=== PATIENT | male | born 1955 | race African-American/Black ===

== ENCOUNTER 2021-03-05 18:40 | Inpatient (IN) | payer MEDICARE, OTHER ==
[~2021-03-05] VITALS: Ht 193 cm; Wt 121.6 kg
[~2021-03-05 18:40] MED LIST: AMLODIPINE BESY10 MG PO; CARVEDILOL25 MG PO; CHLORTHALIDONE25 MG PO; CLEOCIN HCL300 MG PO; LEVAQUIN750 MG PO; LOSARTAN POTAS100 MG PO; MAGIC MOUTHWASH PO; MULTI-VITAMIN1 EACH PO; NORCO 5-325 TA1 EACH PO; NORCO 7.5-3251 EACH PO; OMNICEF 300 MG300 MG PO; ONDANSETRON ODT4 MG SL; PERCOCET 5-3251 EACH PO; PREDNISONE20 MG PO; PROTONIX40 MG PO; SERTRALINE HCL100 MG PO; SYMBICORT 16010.2 GM INH; TRAZODONE HCL100 MG PO; VIBRAMYCIN100 MG PO; VITAMIN D32000 UNI1 PO; ZITHROMAX250 MG PO
[2021-03-05 19:23] LABS: HEMOGLOBIN 12.6 gm/dl (14.0-17.5); RED BLOOD COUNT 4.68 M/UL (4.20-5.50); WHITE BLOOD COUNT 5.5 K/UL (4.5-11.0)
--- NOTE | 2021-03-06 01:58 | NUR ---
PT UNSURE OF HOME MEDS. WILL CALL PHARMACY IN AM
[2021-03-06 04:32] LABS: HEMOGLOBIN 12.8 gm/dl (14.0-17.5); RED BLOOD COUNT 4.77 M/UL (4.20-5.50)
[2021-03-06 04:45] LABS: WHITE BLOOD COUNT 3.3 K/UL (4.5-11.0)
[2021-03-06] MEDS ORDERED: PROVENTIL HFA6.7 GM INH (07:29)
[2021-03-06] MEDS ORDERED: MINIPRES CAP 2 M2 MG PO (07:33)
[2021-03-06] MEDS ORDERED: ASPIRIN EC81 MG PO (08:41)
[2021-03-06] MEDS ORDERED: ABILIFY5 MG PO (08:41)
[2021-03-06] MEDS ORDERED: LIPITOR20 MG PO (08:42)
[2021-03-06] MEDS ORDERED: SENNA PLUS TAB1 EACH PO (08:43)
[2021-03-06] MEDS ORDERED: NEXIUM40 MG PO (08:44)
[2021-03-06] MEDS ORDERED: FERROUS SULFAT325 M2 PO (08:45)
[2021-03-06] MEDS ORDERED: PROCARDIA XL60 MG PO (08:46)
[2021-03-06] MEDS ORDERED: TRAZODONE HCL150 MG PO (08:47)
[2021-03-06] MEDS ORDERED: SPIRIVA RESPIMAT4 GM INH (08:49)
[2021-03-06] MEDS ORDERED: ATIVAN0.5 MG PO (09:03)
[2021-03-06] MEDS ORDERED: LIORESAL TAB 1010 MG PO (09:04)
[2021-03-06] MEDS ORDERED: VIAGRA100 MG PO (09:05)
--- NOTE | 2021-03-06 18:29 | NUR ---
AT 1600 PT CALLED OUT AND SAID IS HAVING A SUDDEN ONSET OF C/P , HIS BP WAS 200/120 86 HR, I CALLED DR KOHLER AND ORDERED A STAT EKG AND GIVE HIM X 1 NITRO 0.4 SL, PT DID STATE IT HELPED HIS C/P , BP 196/126 NOTED AND THEN IVP APRESOLINE ORDERED AND GIVEN PER ANGELINA VIGIL WAS ALSO HERE HELPING LOOK AFTER PT , BP 158/97, ALSO WE STARTED IV CARDENE PER ORDERED ON PROTOCAL, 143/93 , TURNED DRIP OFF AT 1715, PER DR WRIGHT ORDER, PT STATES FEELS BETTER, TROPOIN ALSO WAS DONE WHICH WAS .03 NOTED 1900 PT STATES FEELS BETTER NO C/O PAIN NOTED, IV FLDS INFUSIONING ORDERED
[2021-03-07 04:18] LABS: HEMOGLOBIN 13.4 gm/dl (14.0-17.5); RED BLOOD COUNT 4.83 M/UL (4.20-5.50)
[2021-03-07 04:37] LABS: BUN/CREATININE RATIO 16 (0-10)
[2021-03-08 06:34] LABS: HEMOGLOBIN 12.7 gm/dl (14.0-17.5); RED BLOOD COUNT 4.62 M/UL (4.20-5.50); WHITE BLOOD COUNT 7.7 K/UL (4.5-11.0)
[2021-03-08 07:00] LABS: BUN/CREATININE RATIO 22 (0-10)
[2021-03-09 04:05] LABS: HEMOGLOBIN 12.2 gm/dl (14.0-17.5); RED BLOOD COUNT 4.46 M/UL (4.20-5.50); WHITE BLOOD COUNT 7.2 K/UL (4.5-11.0)
[2021-03-09 04:25] LABS: BUN/CREATININE RATIO 20 (0-10)
[2021-03-10 03:46] LABS: HEMOGLOBIN 11.7 gm/dl (14.0-17.5); RED BLOOD COUNT 4.23 M/UL (4.20-5.50); WHITE BLOOD COUNT 7.7 K/UL (4.5-11.0)
[2021-03-10 04:35] LABS: BUN/CREATININE RATIO 19 (0-10)
[2021-03-10] MEDS ORDERED: HYDRALAZINE HCL50 MG PO (12:18)
[2021-03-10] MEDS ORDERED: DOXYCYCLINE HY100 MG PO (12:18)
[2021-03-10] MEDS ORDERED: DEXAMETHASONE1 MG PO (12:18)
--- NOTE | 2021-03-10 13:52 | NUR ---
1300-OXYGEN SATURATION 84% ON RA
[2021-03-11 10:08] LABS: HBSAG SCREEN Negative (Negative); HEP A AB, IGM Negative (Negative); HEP B CORE AB, IGM Negative (Negative); HEP C VIRUS AB >11.0 (0.0-0.9)
[2021-04-04] MEDS ORDERED: HYDROCODON-ACE1 EAC2 PO (09:03)
== END 2021-03-10 16:25 | disposition home or self-care (01) | DRG 177 ==
LOC: ER1 18:40 → MED SURG 4 22:28 → CDU 22:28 → MED SURG 4 03-06 00:02
PROVIDERS: Family Medicine; Internal Medicine; ADMIT Internal Medicine
PROC: 3E0333Z Introduction of Anti-inflammatory into Peripheral Vein, Percutaneous Approach (ICD-10-PCS; 2021-03-05)
PROC: XW033E5 Introduction of Remdesivir Anti-infective into Peripheral Vein, Percutaneous Approach, New Technology Group 5 (ICD-10-PCS; principal; 2021-03-06)
PROC: 8E0ZXY6 Isolation (ICD-10-PCS; 2021-03-06)
DX: U07.1 COVID-19 (principal); J12.82 Pneumonia due to coronavirus disease 2019; J96.01 Acute respiratory failure with hypoxia; N17.9 Acute kidney failure, unspecified; C34.90 Malignant neoplasm of unspecified part of unspecified bronchus or lung; J44.0 Chronic obstructive pulmonary disease with (acute) lower respiratory infection; A09 Infectious gastroenteritis and colitis, unspecified; D69.6 Thrombocytopenia, unspecified; E86.0 Dehydration; F17.210 Nicotine dependence, cigarettes, uncomplicated; I16.0 Hypertensive urgency; R79.89 Other specified abnormal findings of blood chemistry; I10 Essential (primary) hypertension; Z99.81 Dependence on supplemental oxygen; Z83.3 Family history of diabetes mellitus; Z79.82 Long term (current) use of aspirin
CPT/HCPCS: 0240U; 36415; 36600; 71045; 80048; 80053; 80074; 81001; 82550; 82553; 82803; 82962; 83605; 83615; 84132; 84484; 85025; 85610; 86140; 87040; 87086; 93005; 94640; 94664; 94760; 96374; 96375; 99285; G0378; J0360; J0456; J0696; J1100; J1650; J2543; J2930; J3480; J7030; J7070

== ENCOUNTER 2021-04-03 11:06 | Emergency (ER) | payer MEDICARE, OTHER ==
[~2021-04-03 11:06] MED LIST changes: +ABILIFY5 MG PO; +ASPIRIN EC81 MG PO; +ATIVAN0.5 MG PO; +DEXAMETHASONE1 MG PO; +DOXYCYCLINE HY100 MG PO; +FERROUS SULFAT325 M2 PO; +HYDRALAZINE HCL50 MG PO; +LIORESAL TAB 1010 MG PO; +LIPITOR20 MG PO; +MINIPRES CAP 2 M2 MG PO; +NEXIUM40 MG PO; +PROCARDIA XL60 MG PO; +PROVENTIL HFA6.7 GM INH; +SENNA PLUS TAB1 EACH PO; +SPIRIVA RESPIMAT4 GM INH; +TRAZODONE HCL150 MG PO; +VIAGRA100 MG PO
[2021-04-03 11:42] LABS: HEMOGLOBIN 11.7 gm/dl (14.0-17.5); RED BLOOD COUNT 4.17 M/UL (4.20-5.50); WHITE BLOOD COUNT 5.5 K/UL (4.5-11.0)
[2021-04-03 12:27] LABS: BUN/CREATININE RATIO 5 (0-10)
[2021-04-03] MEDS ORDERED: PREDNISONE 20 M20 MG PO (15:50)
[2021-04-03] MEDS ORDERED: AZITHROMYCIN500 MG PO (15:50)
[2021-04-03] MEDS ORDERED: CEFDINIR300 MG PO (15:50)
[2021-04-04] MEDS ORDERED: HYDROCODON-ACE1 EAC2 PO (09:03)
[2021-04-04] MEDS ORDERED: LAMISIL TAB 25250 MG PO (14:57)
== END 2021-04-03 16:27 | disposition home or self-care (01) ==
LOC: ER1 11:06
PROVIDERS: Physician Assistant
DX: J44.1 Chronic obstructive pulmonary disease with (acute) exacerbation (principal); J44.0 Chronic obstructive pulmonary disease with (acute) lower respiratory infection; J18.9 Pneumonia, unspecified organism; I10 Essential (primary) hypertension; F17.200 Nicotine dependence, unspecified, uncomplicated; I25.2 Old myocardial infarction; Z20.822 Contact with and (suspected) exposure to COVID-19
CPT/HCPCS: 0240U; 36600; 71045; 80053; 82550; 82553; 82803; 83874; 83880; 84484; 85025; 93005; 94640; 94664; 96374; 99285; J2930

== ENCOUNTER 2021-04-04 10:42 | Observation (INO) | payer MEDICARE, OTHER ==
[~2021-04-04] VITALS: Ht 193 cm; Wt 117.9 kg
[~2021-04-04 10:42] MED LIST changes: +AZITHROMYCIN500 MG PO; +CEFDINIR300 MG PO; +HYDROCODON-ACE1 EAC2 PO; +PREDNISONE 20 M20 MG PO
[2021-04-04 12:04] LABS: HEMOGLOBIN 12.1 gm/dl (14.0-17.5); RED BLOOD COUNT 4.28 M/UL (4.20-5.50); WHITE BLOOD COUNT 11.6 K/UL (4.5-11.0)
[2021-04-04 12:23] LABS: BUN/CREATININE RATIO 10 (0-10)
[2021-04-04] MEDS ORDERED: LAMISIL TAB 25250 MG PO (14:57)
== END 2021-04-04 19:18 | disposition home or self-care (01) ==
LOC: ER1 10:42 → CDU 13:56 → MED SURG 4 16:07
PROVIDERS: Emergency Medicine; ADMIT Internal Medicine
DX: R07.89 Other chest pain (principal); I10 Essential (primary) hypertension; E78.5 Hyperlipidemia, unspecified; E87.6 Hypokalemia; J44.9 Chronic obstructive pulmonary disease, unspecified; F17.210 Nicotine dependence, cigarettes, uncomplicated; Z20.822 Contact with and (suspected) exposure to COVID-19; Z86.16 Personal history of COVID-19; Z87.01 Personal history of pneumonia (recurrent); Z99.81 Dependence on supplemental oxygen; Z85.118 Personal history of other malignant neoplasm of bronchus and lung; Z92.21 Personal history of antineoplastic chemotherapy; Z79.82 Long term (current) use of aspirin; Z79.899 Other long term (current) drug therapy
CPT/HCPCS: 36415; 71045; 80053; 82550; 82553; 83874; 84484; 85025; 99285; G0378; U0002

== ENCOUNTER 2021-06-01 17:36 | Emergency (ER) | payer MEDICARE, OTHER ==
[~2021-06-01 17:36] MED LIST changes: +LAMISIL TAB 25250 MG PO
== END 2021-06-01 23:30 | disposition left against medical advice (07) ==
LOC: ER1 17:36
DX: Z53.21 Procedure and treatment not carried out due to patient leaving prior to being seen by health care provider (principal)
CPT/HCPCS: 0240U; 93005

== ENCOUNTER 2021-12-04 16:49 | Emergency (ER) | payer MEDICARE, OTHER ==
[2021-12-04 17:14] LABS: HEMOGLOBIN 13.6 gm/dl (14.0-17.5); RED BLOOD COUNT 4.95 M/UL (4.20-5.50); WHITE BLOOD COUNT 8.1 K/UL (4.5-11.0)
[2021-12-04 17:41] LABS: BUN/CREATININE RATIO 10 (0-10)
[2021-12-04] MEDS ORDERED: HYDROCODON-ACE1 EAC4 PO (20:41)
[2021-12-04] MEDS ORDERED: PROTONIX20 MG PO (20:41)
[2021-12-04] MEDS ORDERED: CARAFATE 1 GM TA1 GM PO (20:41)
== END 2021-12-04 20:49 | disposition left against medical advice (07) ==
LOC: ER1 16:49
PROVIDERS: Emergency Medicine
DX: K29.70 Gastritis, unspecified, without bleeding (principal); Z20.822 Contact with and (suspected) exposure to COVID-19; I25.2 Old myocardial infarction; I10 Essential (primary) hypertension; F17.210 Nicotine dependence, cigarettes, uncomplicated
CPT/HCPCS: 71045; 80048; 80076; 82550; 82553; 83690; 84484; 85025; 93005; 96374; 96375; 99285; G0480; J2270; J2405; Q9967; U0002

== ENCOUNTER 2022-02-28 09:41 | Emergency (ER) | payer OTHER, MEDICARE ==
[~2022-02-28 09:41] MED LIST changes: +CARAFATE 1 GM TA1 GM PO; +HYDROCODON-ACE1 EAC4 PO; +PROTONIX20 MG PO
[2022-02-28 10:17] LABS: HEMOGLOBIN 13.9 gm/dl (14.0-17.5); RED BLOOD COUNT 4.99 M/UL (4.20-5.50); WHITE BLOOD COUNT 9.4 K/UL (4.5-11.0)
[2022-02-28] MEDS ORDERED: PREDNISONE 50 M50 MG PO (12:31)
[2022-02-28] MEDS ORDERED: VIBRAMYCIN100 MG PO (12:31)
== END 2022-02-28 12:30 | disposition home or self-care (01) ==
LOC: ER1 09:41
PROVIDERS: Emergency Medicine
DX: J44.1 Chronic obstructive pulmonary disease with (acute) exacerbation (principal)
CPT/HCPCS: 71045; 80048; 84484; 85025; 93005; 99285

== ENCOUNTER 2022-05-05 12:41 | Observation (INO) | payer OTHER, MEDICARE ==
[~2022-05-05] VITALS: Ht 193 cm; Wt 113.4 kg
[~2022-05-05 12:41] MED LIST changes: +BREZTRI AEROS10.7 GM INH; +BUSPIRONE HCL5 MG PO; +FERROUS SULFAT324 MG PO; -FERROUS SULFAT325 M2 PO; +FLOMAX 0.4 MG0.4 MG PO; +ISOSORBIDE MONO30 MG PO; +MAGNESIUM OXID420 MG PO; +MULTIVITAMIN1 EACH PO; +NITROGLYCERIN0.4 MG SL; +OMEPRAZOLE20 MG PO; +POTASSIUM CHLO20 ME1 PO; +PREDNISONE 50 M50 MG PO; +SIMETHICONE80 MG PO; +SUCRALFATE1 GM PO; +VITAMIN C250 MG PO; -VITAMIN D32000 UNI1 PO; +VITAMIN D325 MC6 PO
[2022-05-05 13:08] LABS: HEMOGLOBIN 13.5 gm/dl (14.0-17.5); RED BLOOD COUNT 4.94 M/UL (4.20-5.50); WHITE BLOOD COUNT 7.4 K/UL (4.5-11.0)
[2022-05-05 13:20] LABS: BUN/CREATININE RATIO 9 (0-10)
[2022-05-05 18:16] LABS: BUN/CREATININE RATIO 12 (0-10)
[2022-05-06 00:36] LABS: HEMOGLOBIN 11.6 gm/dl (14.0-17.5); RED BLOOD COUNT 4.25 M/UL (4.20-5.50); WHITE BLOOD COUNT 6.2 K/UL (4.5-11.0)
--- NOTE | 2022-05-06 01:41 | NUR ---
APPROX 1850 DR. LAMBERT ORDERS IF CARDIAC ENZYMES ARE HIGH TO CALL CARDIO AND MOVE TO PCU. 191 DR. BANG CALLS AND STATES OK FOR PT TO STAY ON MED SURGE AT THIS TIME DONT THINK ENZYMES WILL BE ELEVATED BUT IF THEY DO COME BACK INCREASES FROM E[facility]ER TODAY OK TO MOVE TO PCU. 1916 CALLED LAB CHECKING ON 1800 CARDIAC ENZYMES THEY ARE ON WAY UP NOW TO DO THIS LAB.
--- NOTE | 2022-05-07 03:01 | NUR ---
APPROX 2030 RADIAL BAND REMOVED, AREA CLEANED, AND LARGE BANDAID PLACED, NO SIGNS OF BLEEDING, NO SIGNS OF DISTRESS. PT WAS CHECKED AT THE FOLLOWING TIMES AND HAD NO BLEEDING AND NO SIGNS OF DISTRESS. 2029,2044,2099,[id number],5,[id number],0040. WILL CONTINUE TO MONTIOR PATIENT.
== END 2022-05-07 11:14 | disposition home or self-care (01) ==
LOC: ER1 12:41 → MED SURG 4 14:09 → CDU 14:09 → MED SURG 4 18:39
PROVIDERS: Emergency Medicine; Physician Assistant Medical; ADMIT Internal Medicine Infectious Disease
DX: R07.89 Other chest pain (principal); I10 Essential (primary) hypertension; E78.5 Hyperlipidemia, unspecified; K21.9 Gastro-esophageal reflux disease without esophagitis; J44.9 Chronic obstructive pulmonary disease, unspecified; F17.210 Nicotine dependence, cigarettes, uncomplicated; Z72.89 Other problems related to lifestyle; Z91.018 Allergy to other foods; Z79.82 Long term (current) use of aspirin; Z79.899 Other long term (current) drug therapy
CPT/HCPCS: 71045; 80048; 80053; 82550; 82553; 83735; 84484; 85025; 85027; 85610; 85730; 93005; 94760; 96374; 99152; 99285; G0378; J1644; J2250; J2270; J3010; Q9967

== ENCOUNTER 2022-05-19 03:16 | Emergency (ER) | payer OTHER, MEDICARE ==
[2022-05-19 04:06] LABS: HEMOGLOBIN 13.6 gm/dl (14.0-17.5); RED BLOOD COUNT 4.9 M/UL (4.20-5.50); WHITE BLOOD COUNT 12.5 K/UL (4.5-11.0)
[2022-05-19 04:36] LABS: BUN/CREATININE RATIO 12 (0-10)
[2022-05-19] MEDS ORDERED: HYDROCODON-ACE1 EAC4 PO (08:50)
== END 2022-05-19 11:17 | disposition home or self-care (01) ==
LOC: ER1 03:16
PROVIDERS: Student in an Organized Health Care Education/Training Program
DX: S82.62XA Displaced fracture of lateral malleolus of left fibula, initial encounter for closed fracture (principal); S05.10XA Contusion of eyeball and orbital tissues, unspecified eye, initial encounter; I10 Essential (primary) hypertension; F17.210 Nicotine dependence, cigarettes, uncomplicated; W01.0XXA Fall on same level from slipping, tripping and stumbling without subsequent striking against object, initial encounter; Y92.009 Unspecified place in unspecified non-institutional (private) residence as the place of occurrence of the external cause
CPT/HCPCS: 70450; 71045; 73564; 73610; 73630; 80053; 82550; 82553; 84484; 85025; 96374; 99284; J2270

== ENCOUNTER → 2022-06-04 | Day surgery (SDC) | payer OTHER, MEDICARE | END | disposition home or self-care (01) | LOC: OR 07:20 | DX: K29.50 Unspecified chronic gastritis without bleeding (principal); K21.00 Gastro-esophageal reflux disease with esophagitis, without bleeding; K44.9 Diaphragmatic hernia without obstruction or gangrene; K76.6 Portal hypertension; K31.89 Other diseases of stomach and duodenum; J44.9 Chronic obstructive pulmonary disease, unspecified; I10 Essential (primary) hypertension; E66.9 Obesity, unspecified; D64.9 Anemia, unspecified; F17.210 Nicotine dependence, cigarettes, uncomplicated; Z79.82 Long term (current) use of aspirin; Z79.899 Other long term (current) drug therapy; Z68.30 Body mass index [BMI] 30.0-30.9, adult; Z91.018 Allergy to other foods; Z91.041 Radiographic dye allergy status | CPT/HCPCS: J2704 ==

== ENCOUNTER → 2022-07-28 | Outpatient (CLI) | payer OTHER, MEDICARE | LOC: KOH-I 13:22 | DX: S82.892A Other fracture of left lower leg, initial encounter for closed fracture (principal); S82.832D Other fracture of upper and lower end of left fibula, subsequent encounter for closed fracture with routine healing | CPT/HCPCS: 73610 ==